=== PATIENT | male | born 1995 | race Caucasian/White ===

== ENCOUNTER 2023-04-14 23:56 | Inpatient (IN) | payer BC, OTHER ==
[~2023-04-14] VITALS: Ht 185.4 cm; Wt 112.8 kg
[~2023-04-14 23:56] MED LIST: ONDA4TAB6 PO
[2023-04-15] VITALS (14 sets, daily range): BP systolic 124–144; BP diastolic 69–92; PULSE 64–104; RESP 13–22; TEMP 98.6; O2SAT 94–99
[2023-04-15] MEDS ORDERED: ondansetron/PF 4mg/2ml inj IV ONE (00:10)
[2023-04-15] MEDS ORDERED: proCHLORperazine 10 MG/2 ml inj IV ONE (00:30)
[2023-04-15] MEDS ORDERED: morphine 4 MG/ML inj SYRINge IV ONE ×2 (00:30→02:20)
[2023-04-15] MEDS ORDERED: LORazepam 2 mg/ml vial IV ONE (00:30)
[2023-04-15 00:31] LABS: BILIRUBIN,URINE SMALL (Neg); CLARITY,URINE SLIGHTLY CLOUDY (Clear); COLOR,URINE YELLOW (Yellow); GLUCOSE, URINE NEGATIVE (Neg); KETONES,URINE NEGATIVE (Neg); LEUKOCYTE ESTERASE ,URINE NEGATIVE (Neg); NITRITES, URINE NEGATIVE (Neg); OCCULT BLOOD,URINE NEGATIVE (Neg); PH,URINE 5.5 (4.8-8.0); PROTEIN,URINE TRACE mg/dl (Neg); UROBILINOGEN,URINE 0.2 E.U/dL (0.2-1.0)
[2023-04-15 00:35] LABS: HEMOGLOBIN 16.1 g/dl (14.0-17.9); WHITE BLOOD COUNT 9.1 X10'3 (4.5-11.0)
[2023-04-15 00:35] LABS: UA COLLECTION TYPE CLN CATCH MIDSTREAM
[2023-04-15 00:36] LABS: BASOPHILS # (AUTO) 0.1 X10'3 (0-0.2); BASOPHILS % (AUTO) 0.8 % (0-1); EOSINOPHILS # (AUTO) 0.2 X10'3 (0-0.9); EOSINOPHILS % (AUTO) 2.7 % (0-6); HEMATOCRIT 46.9 % (42.0-52.0); LYMPHOCYTES # (AUTO) 2.6 X10'3 (1.1-4.8); MEAN CORPUSCULAR HEMOGLOBIN 30.7 PG (27.0-31.0); MEAN CORPUSCULAR HGB CONC 34.4 g/dL (33.0-36.5); MEAN CORPUSCULAR VOLUME 89.2 FL (78-98); MEAN PLATELET VOLUME 8.8 FL (7.4-10.4); MONOCYTES # (AUTO) 0.7 X10'3 (0-0.9); MONOCYTES % (AUTO) 7.7 % (2-12); NEUTROPHILS # (AUTO) 5.4 X10'3 (1.8-7.7); NEUTROPHILS % (AUTO) 59.8 % (42-75); PLATELET COUNT 233 X10'3 (140-440); RED BLOOD COUNT 5.25 X10'6 (4.70-6.10); RED CELL DISTRIBUTION WIDTH 13.2 % (11.5-14.5)
[2023-04-15 00:36] LABS: MUCUS STRANDS MANY /LPF (Neg); SQUAMOUS EPITHELIAL CELL,UR NONE SEEN /LPF (FEW); WBC,URINE 0-4 /HPF (0-4)
[2023-04-15 00:37] LABS: BACTERIA,URINE 3+ /HPF (Neg); RBC,URINE NONE SEEN /HPF (0-2)
[2023-04-15 00:50] LABS: ALANINE AMINOTRANSFERASE 19 U/L (12-78); ALBUMIN 4.1 G/DL (3.4-5.0); ALBUMIN/GLOBULIN RATIO 1.1 (1.1-1.5); ALKALINE PHOSPHATASE 89 IU/L (46-116); AMYLASE 69 U/L (25-115); ANION GAP 7 (8-16); ASPARTATE AMINO TRANSFERASE 20 U/L (10-37); BILIRUBIN,TOTAL 0.4 MG/DL (0.1-1.0); BLOOD UREA NITROGEN 8 MG/DL (7-18); BUN/CREATININE RATIO 7.8 (10.0-20.0); CALCIUM 9.4 MG/DL (8.5-10.1); CHLORIDE 105 MMOL/L (99-107); CREATININE 1.03 MG/DL (0.60-1.10); GLUCOSE 130 MG/DL (70-104); LIPASE 32 U/L (16-77); POTASSIUM 3.6 MMOL/L (3.5-5.1); SODIUM 140 MMOL/L (135-145); TOTAL CARBON DIOXIDE 27.7 MMOL/L (24-32); TOTAL PROTEIN 7.7 G/DL (6.4-8.2); eCRCL 121 ML/MIN; eGFR 86 ML/MIN
[2023-04-15] MEDS ORDERED: morphine 4 MG/ML inj SYRINge IV STA (04:03)
[2023-04-15] MEDS ORDERED: fentaNYL/PF 50MCG/1 ML 2ML syringe IV ONE ×2 (04:10→08:00)
[2023-04-15] MEDS ORDERED: piperacillin/tazo 3.375gm/50ml 50 ML IV ONE (06:10)
[2023-04-15] MEDS: fentaNYL/PF 50MCG/1 ML 2ML syringe IV ONE ×2 (07:08→07:59)
--- NOTE | 2023-04-15 07:13 | NUR ---
This RN wasted the vial w/the med in it. Will put in new order and notify and conservation policy analyst Sylvia.
[2023-04-15] MEDS ORDERED: magnesium 2GM in 50ml NS 50 ML IV PRN (07:30)
[2023-04-15] MEDS ORDERED: magnesium 4gm in 100ml NS 100 ML IV PRN (07:30)
[2023-04-15] MEDS ORDERED: HYDROcodone/acetaminophen 10/325mg tab PO PRN ×2 (07:30→20:30)
[2023-04-15] MEDS ORDERED: magnesium Cl slow-release 64mg tablet PO PRN (07:30)
[2023-04-15] MEDS ORDERED: HYDROmorphone inj. 0.5 MG/0.5 ML DISP.SYRIN IV PRN (07:30)
[2023-04-15] MEDS: normal saline 1000ml 1,000 ML IV SCH ×2 (07:30→22:59)
[2023-04-15] MEDS ORDERED: acetaminophen 325mg tablet PO PRN (07:30)
[2023-04-15] MEDS ORDERED: morphine 2 MG/ML inj. syringe IV PRN ×2 (07:30→16:45)
[2023-04-15] MEDS ORDERED: potassium Cl 20 mEq SR tablet PO PRN ×2 (07:30)
[2023-04-15] MEDS ORDERED: mag hydrox/Alum hydrox/simeth 30ml oral suspension PO PRN (07:30)
[2023-04-15] MEDS ORDERED: ondansetron/PF 4mg/2ml inj IV PRN ×2 (07:30→16:45)
[2023-04-15] MEDS ORDERED: magnesium hydroxide 30ml (MOM) UD suspension PO PRN (07:30)
[2023-04-15] MEDS ORDERED: potassium Cl 40MEQ/1/2NS 520ml 520 ML IV PRN (07:30)
[2023-04-15] MEDS: docusate sod 100mg capsule PO SCH ×2 (08:00→21:00)
[2023-04-15] MEDS: K and/or MAG REPLACEMENT MC SCH ×2 (08:00→21:00)
[2023-04-15] MEDS ORDERED: NO HOME MEDS (09:45)
[2023-04-15] MEDS ORDERED: BUPIVAcaine 2.5mg/ml inj 50ml vial (contains preservative) ONE (14:07)
[2023-04-15] MEDS ORDERED: INDOCYANINE GREEN 25 MG/10 ML VIAL IV ONE (15:00)
[2023-04-15] MEDS ORDERED: morphine 2 MG/ML inj. syringe IV ONE (15:35)
[2023-04-15] MEDS ORDERED: LIDOcaine 1% (10mg/ml)w/preservative inj. 20ml MDV ONE (16:18)
[2023-04-15] MEDS ORDERED: BUPIVAcaine/PF 2.5mg/ml (0.25%) 10ml vial ONE (16:19)
--- NOTE | 2023-04-15 16:23 | NUR ---
Pt to OR
[2023-04-15] MEDS ORDERED: fentaNYL/PF 50MCG/1 ML 2ML syringe ONE (16:40)
[2023-04-15] MEDS ORDERED: meperidine/PF 25mg/ml syringe IV PRN ×3 (16:45)
[2023-04-15] MEDS ORDERED: ringers solution, lacted 1,000 ML IV SCH (16:45)
[2023-04-15] MEDS ORDERED: morphine 4 MG/ML inj SYRINge IV PRN (16:45)
[2023-04-15] MEDS ORDERED: proCHLORperazine 10 MG/2 ml inj IV PRN (16:45)
[2023-04-15] MEDS ORDERED: midazolam 1 mg/ML 2ml injection ONE (17:22)
[2023-04-15] MEDS ORDERED: LIDOcaine 2% (20mg/ml) 5ml vial ONE (17:24)
[2023-04-15] MEDS ORDERED: propofol inj 20 ML IV ONE (17:24)
[2023-04-15] MEDS ORDERED: rocuronium 10mg/ml inj IV ONE ×2 (17:24→19:06)
[2023-04-15] MEDS ORDERED: dexamethasone sod phosphate 10mg/ml inj ONE (18:10)
[2023-04-15] MEDS ORDERED: ondansetron/PF 4mg/2ml inj ONE (18:10)
[2023-04-15] MEDS ORDERED: sevoflurane 250ml liquid IH ONE (18:10)
[2023-04-15] MEDS ORDERED: ketamine 50mg/5ml syringe ONE (18:26)
[2023-04-15] MEDS ORDERED: ceFAZolin 1000mg inj ONE ×3 (18:33)
[2023-04-15] MEDS ORDERED: phenylephrine 10mg/ml inj. -priapism dosing ONE (19:06)
[2023-04-15] MEDS ORDERED: LIDOcaine 1% 30ml preserv. free vial IJ ONE (19:11)
[2023-04-15] MEDS ORDERED: BUPIVAcaine/PF 2.5 mg/ml (0.25%) 30ml vial IJ ONE (19:11)
[2023-04-15] MEDS ORDERED: neostigmine methylsulfate 1 MG/ML 10ml vial ONE (19:44)
[2023-04-15] MEDS ORDERED: glycopyrrolate 0.2mg/ml inj ONE (19:44)
[2023-04-15] MEDS ORDERED: meperidine/PF 25mg/ml syringe ONE (19:48)
--- NOTE | 2023-04-15 19:52 | NUR ---
Received from OR via HOSPITAL BED TO RR 5, accompanied by Anesthesiologist SELVIN and report given by Anesthesiologist. PT PRESENTS ON 10L VIA MASK WITH SPO2 AT 99%. VSS. PATIENT DOES NOT COMPLAIN OF PAIN, NAUSEA, OR VOMITING AT THIS TIME. LR RUNNING THRU PIV, ABD LAP SITES ARE CDI. SCD'S ARE ON BLE.
[2023-04-15] MEDS ORDERED: sugammadex 200mg/2ml injection IV ONE (19:54)
[2023-04-15] MEDS ORDERED: acetaminophen 1,000mg/100ml IV 100 ML IV STA (20:00)
[2023-04-15] MEDS ORDERED: HYDROcodone/acetaminophen 5mg/325mg tablet PO PRN (20:30)
[2023-04-15] MEDS ORDERED: naloxone 0.4 mg/ml inj IV PRN (20:30)
--- NOTE | 2023-04-15 21:02 | NUR ---
PATIENT STABLE FOR TRANSFER TO ROOM 4010B PER MD ORDERS. REPORT GIVEN TO NURSE PEREZ. ALL QUESTIONS, COMMENTS, AND CONCERNS WERE ANSWERED AT THIS TIME. PATIENT DOES NOT COMPLAIN OF PAIN, NAUSEA, OR VOMITING. 4 ABD LAP SITES REMAIN CDI. PATIENT HOOKED UP TO POST OP VITALS. CALL LIGHT WITHIN REACH, BLL, 2 RAILS UP, PRIMARY NURSE IN ROOM DURING TRANSFER. ALL BELONGINGS WERE WITH FAMILY WHO WAS AT BEDSIDE.
--- NOTE | 2023-04-15 21:05 | NUR ---
RECEIVED PT FROM PACU VIA HOSPITAL BED FOLLOWING VERBAL REPORT. ASSUMED CARE
[2023-04-15] MEDS: piperacillin/tazo 3.375gm/50ml 50 ML IV SCH (22:59)
[2023-04-16 00:50] VITALS: BP 95/34; PULSE 18; RESP 18; TEMP 98.8
[2023-04-16 06:00] VITALS: BP 96/52; PULSE 69; RESP 18; TEMP 98.8; O2SAT 95
[2023-04-16 06:38] LABS: BASOPHILS % (AUTO) 0.1 % (0-1); EOSINOPHILS % (AUTO) 0 % (0-6); HEMATOCRIT 40.8 % (42.0-52.0); HEMOGLOBIN 13.7 g/dl (14.0-17.9); LYMPHOCYTES # (AUTO) 0.7 X10'3 (1.1-4.8); MEAN CORPUSCULAR HEMOGLOBIN 30.4 PG (27.0-31.0); MEAN CORPUSCULAR HGB CONC 33.6 g/dL (33.0-36.5); MEAN CORPUSCULAR VOLUME 90.4 FL (78-98); MONOCYTES # (AUTO) 0.7 X10'3 (0-0.9); MONOCYTES % (AUTO) 6.3 % (2-12); NEUTROPHILS % (AUTO) 87.6 % (42-75); PLATELET COUNT 191 X10'3 (140-440); RED BLOOD COUNT 4.51 X10'6 (4.70-6.10); RED CELL DISTRIBUTION WIDTH 13.2 % (11.5-14.5); WHITE BLOOD COUNT 11.4 X10'3 (4.5-11.0)
--- NOTE | 2023-04-16 06:43 | NUR ---
Problems reprioritized. Patient report given, questions answered & plan of care reviewed with
[2023-04-16 06:56] LABS: ALANINE AMINOTRANSFERASE 40 U/L (12-78); ALBUMIN 3.2 G/DL (3.4-5.0); ALKALINE PHOSPHATASE 63 IU/L (46-116); ANION GAP 6 (8-16); ASPARTATE AMINO TRANSFERASE 43 U/L (10-37); BILIRUBIN,TOTAL 0.9 MG/DL (0.1-1.0); BLOOD UREA NITROGEN 9 MG/DL (7-18); BUN/CREATININE RATIO 9.5 (10.0-20.0); CALCIUM 8.6 MG/DL (8.5-10.1); CHLORIDE 105 MMOL/L (99-107); CREATININE 0.95 MG/DL (0.60-1.10); GLUCOSE 123 MG/DL (70-104); MAGNESIUM 2.2 MG/DL (1.5-2.4); PHOSPHORUS 3.7 MG/DL (2.3-4.5); POTASSIUM 3.9 MMOL/L (3.5-5.1); SODIUM 138 MMOL/L (135-145); TOTAL CARBON DIOXIDE 27.2 MMOL/L (24-32); TOTAL PROTEIN 6.4 G/DL (6.4-8.2); eCRCL 131 ML/MIN; eGFR > 90 ML/MIN
[2023-04-16] MEDS: K and/or MAG REPLACEMENT MC SCH (08:00)
[2023-04-16] MEDS: docusate sod 100mg capsule PO SCH (09:34)
[2023-04-16] MEDS: piperacillin/tazo 3.375gm/50ml 50 ML IV SCH ×2 (09:34)
[2023-04-16 10:00] VITALS: BP 124/73; PULSE 87; RESP 16; TEMP 98.1; O2SAT 96
[2023-04-16] MEDS ORDERED: AMOX-117 PO (10:02)
[2023-04-16] MEDS ORDERED: HYDR-3965 PO (10:44)
--- NOTE | 2023-04-16 16:57 | NUR ---
discharge note: DISCHARGE PAPERWORK REVIEWED WITH PT. 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 rEVIEWED SURGEONS INSTRUCTIONS. PIV DC'D, NO COMPLICATIONS CANNULA INTACT. PT. LEFT WITH HIS BELONGINGS TO DISCHARGE HOME.
== END 2023-04-16 11:25 | disposition home or self-care (01) | DRG 419 ==
LOC: ER 23:57 → ED HOLD 04-15 07:33 → EDBEDREQ 04-15 15:57 → ORTHO 4S 04-15 21:13
PROVIDERS: ADMIT Internal Medicine; ATTEND Internal Medicine
PROC: 8E0W4CZ Robotic Assisted Procedure of Trunk Region, Percutaneous Endoscopic Approach (ICD-10-PCS; 2023-04-15)
PROC: 0FT44ZZ Resection of Gallbladder, Percutaneous Endoscopic Approach (ICD-10-PCS; principal; 2023-04-15 18:10)
DX: K80.00 Calculus of gallbladder with acute cholecystitis without obstruction (principal); K82.A1 Gangrene of gallbladder in cholecystitis; Z98.84 Bariatric surgery status; Z83.3 Family history of diabetes mellitus
CPT/HCPCS: 96365; 96375; 99285; Z7506; Z7508; 36415; 74176; 76700; 80053; 81001; 82150; 83690; 83735; 84100; 84145; 85025; A4215; A4618; A7000; G0378; J0131; J0690; J0780; J1100; J1170; J2060; J2175; J2250; J2270; J2370; J2405; J2543; J2704; J2710; J3010; J3490; J7030; J7120

== ENCOUNTER 2023-04-18 04:59 | Emergency (ER) | payer BC ==
[~2023-04-18] VITALS: Ht 185.4 cm; Wt 120.0 kg
[~2023-04-18 04:59] MED LIST changes: +AMOX-117 PO; +HYDR-3965 PO; -ONDA4TAB6 PO
[2023-04-18] MEDS ORDERED: famotidine/PF 10 mg/ml inj IV ONE (05:20)
[2023-04-18] MEDS ORDERED: ondansetron/PF 4mg/2ml inj IV ONE (05:20)
[2023-04-18] MEDS ORDERED: pantoprazole 40 MG vial IV ONE (05:20)
[2023-04-18] MEDS ORDERED: normal saline 1000ml 1,000 ML IV ONE (05:35)
[2023-04-18 05:40] LABS: RED CELL DISTRIBUTION WIDTH 13.1 % (11.5-14.5)
[2023-04-18 05:42] LABS: BASOPHILS # (AUTO) 0.1 X10'3 (0-0.2); BASOPHILS % (AUTO) 0.8 % (0-1); EOSINOPHILS # (AUTO) 0.2 X10'3 (0-0.9); EOSINOPHILS % (AUTO) 2.4 % (0-6); HEMATOCRIT 45.3 % (42.0-52.0); HEMOGLOBIN 15.3 g/dl (14.0-17.9); LYMPHOCYTES # (AUTO) 3.2 X10'3 (1.1-4.8); LYMPHOCYTES % (AUTO) 33.2 % (21-51); MEAN CORPUSCULAR HEMOGLOBIN 30.5 PG (27.0-31.0); MEAN CORPUSCULAR HGB CONC 33.8 g/dL (33.0-36.5); MEAN CORPUSCULAR VOLUME 90.3 FL (78-98); MEAN PLATELET VOLUME 8.5 FL (7.4-10.4); MONOCYTES # (AUTO) 0.9 X10'3 (0-0.9); NEUTROPHILS # (AUTO) 5.2 X10'3 (1.8-7.7); NEUTROPHILS % (AUTO) 54.6 % (42-75); PLATELET COUNT 250 X10'3 (140-440); RED BLOOD COUNT 5.02 X10'6 (4.70-6.10); WHITE BLOOD COUNT 9.5 X10'3 (4.5-11.0)
[2023-04-18 06:02] LABS: ALANINE AMINOTRANSFERASE 55 U/L (12-78); ALBUMIN 3.5 G/DL (3.4-5.0); ALBUMIN/GLOBULIN RATIO 0.9 (1.1-1.5); ALKALINE PHOSPHATASE 73 IU/L (46-116); ANION GAP 8 (8-16); ASPARTATE AMINO TRANSFERASE 47 U/L (10-37); BILIRUBIN,TOTAL 0.9 MG/DL (0.1-1.0); BLOOD UREA NITROGEN 13 MG/DL (7-18); BUN/CREATININE RATIO 12.9 (10.0-20.0); CALCIUM 9.1 MG/DL (8.5-10.1); CHLORIDE 105 MMOL/L (99-107); CREATININE 1.01 MG/DL (0.60-1.10); GLUCOSE 128 MG/DL (70-104); POTASSIUM 3.3 MMOL/L (3.5-5.1); SODIUM 143 MMOL/L (135-145); TOTAL CARBON DIOXIDE 29.7 MMOL/L (24-32); TOTAL PROTEIN 7.5 G/DL (6.4-8.2); eCRCL 123 ML/MIN; eGFR 88 ML/MIN
[2023-04-18 06:10] LABS: PRO BRAIN NATRIURETIC PEPTIDE 54 PG/ML (0-125)
[2023-04-18 06:52] VITALS: PULSE 61
[2023-04-18 07:13] VITALS: BP 133/89; RESP 17; TEMP 97.6; O2SAT 99
== END 2023-04-18 07:16 | disposition home or self-care (01) ==
LOC: ER 05:00
DX: K29.70 Gastritis, unspecified, without bleeding (principal); Z90.49 Acquired absence of other specified parts of digestive tract; Z72.89 Other problems related to lifestyle; Z79.899 Other long term (current) drug therapy
CPT/HCPCS: 36415; 71045; 80053; 83880; 84145; 84484; 85025; 93005; 96374; 96375; 99285; C9113; J2405; J3490; J7030